=== PATIENT | female | born 1970 | race Caucasian/White ===

== ENCOUNTER 2017-04-20 20:23 | Emergency (ER) | payer BC ==
--- NOTE | 2017-04-20 21:06 | EDM.PDOC ---
ED HPI GENERAL MEDICAL PROBLEM - General Chief Complaint: Chest Pain Stated Complaint: BLOOD PRESSURE HIGH Time Seen by Provider: 04/20/17 20:34 Source of Information: Reports: Patient, Family (), RN Notes Reviewed History Limitations: Reports: No Limitations - History of Present Illness INITIAL COMMENTS - FREE TEXT/NARRATIVE: The patient states that she was seen at the [facility] earlier today for bladder issues, including pain. At the clinic, her blood pressure was noted to be 150/100. When she came home, she checked her blood pressure with her blood pressure cuff, finding a blood pressure 142/54, then 150/109, then 162/ 115. The patient does not have a history of hypertension. Here in the ED, without any treatment, her blood pressure is 113/74. She denies having a headache or blurry vision. Chest Pain Score (Numeric/FACES): 5 Pelvic Pain Score (Numeric/FACES): 8 - Related Data Allergies Allergy/AdvReac Type Severity Reaction Status Date / Time amoxicillin Allergy Hives Verified 04/20/17 20:33 Home Meds: Home Meds Gabapentin. 04/20/17 [History] Tramadol. 04/20/17 [History] Venlafaxine [Effexor XR] 150 mg PO DAILY 04/20/17 [History] Past Medical History Genitourinary History: Reports: Other (See Below) (Prolapsed bladder) Psychiatric History: Reports: Anxiety Endocrine/Metabolic History: Reports: Obesity/BMI 30+ - Infectious Disease History Infectious Disease History: Reports: Chicken Pox - Past Surgical History GI Surgical History: Reports: Other (See Below) (Exploratory laparotomy) Female Surgical History: Reports: Other (See Below) (Bladder suspension x 2 or 3) Social & Family History - Tobacco Use Smoking Status *Q: Never Smoker Second Hand Smoke Exposure: No - Alcohol Use Alcohol Use History: No - Recreational Drug Use Recreational Drug Use: No - Living Situation & Occupation Living situation: Reports: , with Spouse, with Family (2 kids) Occupation: Employed ([employer]) ED ROS GENERAL - Review of Systems Review Of Systems: See Below Constitutional: Reports: Chills HEENT: Reports: No Symptoms Respiratory: Reports: No Symptoms Cardiovascular: Reports: No Symptoms Endocrine: Reports: No Symptoms GI/Abdominal: Reports: No Symptoms : Reports: Pain Musculoskeletal: Reports: No Symptoms Skin: Reports: No Symptoms Neurological: Reports: No Symptoms Psychiatric: Reports: No Symptoms Hematologic/Lymphatic: Reports: No Symptoms Immunologic: Reports: No Symptoms ED EXAM, GENERAL - Physical Exam Exam: See Below Exam Limited By: No Limitations General Appearance: Alert, WD/WN, No Apparent Distress Eye Exam: Bilateral Eye: Normal Inspection Ears: Normal External Exam, Hearing Grossly Normal Nose: Normal Inspection, No Blood Throat/Mouth: Normal Inspection, Normal Lips, Normal Voice, No Airway Compromise Head: Atraumatic, Normocephalic Neck: Normal Inspection, Full Range of Motion Respiratory/Chest: No Respiratory Distress, Lungs Clear, Normal Breath Sounds, No Accessory Muscle Use Cardiovascular: Normal Peripheral Pulses, Regular Rate, Rhythm, No Gallop, No JVD, No Murmur, No Rub Peripheral Pulses: 4+: Radial (L), Radial (R) GI/Abdominal: Normal Bowel Sounds, Soft, Non-Tender, No Organomegaly, No Distention, No Abnormal Bruit, No Mass, Other (Obese) (Female) Exam: Deferred Rectal (Female) Exam: Deferred Back Exam: Normal Inspection, Full Range of Motion, NT Extremities: Normal Inspection, Normal Range of Motion, No Pedal Edema, Normal Capillary Refill Neurological: Alert, Oriented, Normal Cognition, No Motor/Sensory Deficits Psychiatric: Normal Affect Skin Exam: Warm, Dry, Intact, Normal Color, No Rash Lymphatic: No Adenopathy EKG INTERPRETATION EKG Date: 04/20/17 Time: 20:41 Rhythm: NSR Rate (Beats/Min): 61 [place]: Normal P-Wave: Present QRS: Normal ST-T: Normal QT: Normal Comparison: No Change (05/20/2016) Course - Vital Signs Last Recorded V/S: Last Vital Signs Temp 36.8 C 04/20/17 20:35 Pulse 63 04/20/17 20:35 Resp 16 04/20/17 20:35 BP 121/70 04/20/17 21:20 Pulse Ox 99 04/20/17 21:20 - Orders/Labs/Meds Orders: Active Orders 24 hr Category Date Time Status EKG Documentation Completion [RC] STAT Care 04/20/17 20:41 Active - Re-Assessments/Exams Free Text/Narrative Re-Assessment/Exam: 04/20/17 21:02 While the patient's blood pressure was elevated at the [facility] and at home , none of these were under restful conditions. Here in the ED, without any treatment, the patient's blood pressure is well within normal limits, at 113/ 74. She does not have hypertension, and no treatment is required. Departure - Departure Time of Disposition: 21:04 Disposition: Home, Self-Care 01 Condition: Good Clinical Impression: Elevated blood pressure reading without diagnosis of hypertension - Discharge Information Referrals: PCP,None [Primary Care Provider] - Forms: ED Department Discharge Additional Instructions: You were seen in the emergency room for elevated blood pressure earlier today. In the ER, without any treatment, your blood pressure was normal at 113/74. This means that you do not have hypertension, and no treatment of your blood pressure is needed. If any other problems, please do not hesitate to return to the ER. - My Orders Last 24 Hours: My Active Orders 04/20/17 20:41 EKG Documentation Completion [RC] STAT - Assessment/Plan Last 24 Hours: My Active Orders 04/20/17 20:41 EKG Documentation Completion [RC] STAT
[2017-04-20 21:35] VITALS: BP 121/70
== END 2017-04-20 21:20 | disposition home or self-care (01) ==
LOC: JD.ED 20:23
DX: R03.0 Elevated blood-pressure reading, without diagnosis of hypertension (principal); F41.9 Anxiety disorder, unspecified; E66.9 Obesity, unspecified; Z98.890 Other specified postprocedural states; Z79.899 Other long term (current) drug therapy; Z88.1 Allergy status to other antibiotic agents
CPT/HCPCS: 93005; 99282; 99283-25

== ENCOUNTER 2019-08-16 12:07 | Emergency (ER) | payer BC ==
[2019-08-16] MEDS ORDERED: HYDROmorphone 0.5 MG/0.5 ML Syringe IVPUSH ONE ×2 (12:25→13:39)
[2019-08-16] MEDS ORDERED: Ondansetron 4 MG/2 ML SDV IVPUSH ONE (12:25)
[2019-08-16 12:28] VITALS: BP 119/81; PULSE 76
--- NOTE | 2019-08-16 12:28 | EDM.PDOC ---
ED HPI GENERAL MEDICAL PROBLEM - General Chief Complaint: Flank Pain Stated Complaint: FLANK PAIN Time Seen by Provider: 08/16/19 12:23 Source of Information: Reports: Patient, Family (daughterr) History Limitations: Reports: No Limitations - History of Present Illness INITIAL COMMENTS - FREE TEXT/NARRATIVE: 49-year-old female presents to the ED with rather acute onset of left flank low back pain yesterday afternoon. As constant without a colicky component. She feels she probably has a recurrent urinary tract infection. She's had some chills but no defined fever. She does feel slightly warm to palpation the ED. Should nausea without vomiting. No history of kidney stones. She was treated for urinary tract infection about 3 weeks ago but stopped Cipro prematurely due to development of leg cramps which she associated with a side effect of Cipro. Seem to get better after the treatment that she did take and have subsequently returned. Certain movements and lifting seem to make the pain somewhat worse as well. Patient reports that she has had a previous bladder sling procedure with attempt to remove the mesh grafting due to complications. Left side of the graft was able to be removed but the right side was to return to the tissues to be removed completely. This places her at higher risk of development of UTI. She has urinary frequency but no dysuria or urgency. There is some degree of terminal dysuria. Onset: Sudden Onset Date: 08/15/19 Onset Time: 14:00 Duration: Hour(s):, Getting Worse Location: Reports: Back (Left flank and lower back.) Quality: Reports: Ache Severity: Moderate (Described as a deep aching discomfort. 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 1 tab PO DAILY 04/20/17 [History] Tramadol. 100 mg PO TID 04/20/17 [History] Doxycycline [Vibramycin] 100 mg PO BID #20 cap 08/16/19 [Rx] buPROPion [Wellbutrin] 75 mg PO DAILY 08/16/19 [History] oxyCODONE HCl/Acetaminophen [Percocet 5-325 mg Tablet] 1 - 2 each PO Q4H PRN # 12 tablet 08/16/19 [Rx] Past Medical History - Past Health History Medical/Surgical History: Denies Medical/Surgical History Genitourinary History: Reports: UTI, Recurrent, Other (See Below) (Prolapsed bladder has had a bladder sling procedure 1 with removal of graft due to complications. Only the left side of the graft was able to be removed the right was to return to the tissues.) Psychiatric History: Reports: Anxiety Endocrine/Metabolic History: Reports: Obesity/BMI 30+ - Infectious Disease History Infectious Disease History: Reports: Chicken Pox - Past Surgical History GI Surgical History: Reports: Other (See Below) (Exploratory laparotomy) Female Surgical History: Reports: Other (See Below) (Bladder suspension x 2 or 3) Social & Family History - Caffeine Use Caffeine Use: Reports: None - Living Situation & Occupation Living situation: Reports: , with Spouse, with Family (2 kids) Occupation: Employed ([employer]) ED ROS GENERAL - Review of Systems Review Of Systems: See Below Constitutional: Reports: Chills, Malaise, Weakness, Fatigue, Decreased Appetite HEENT: Reports: No Symptoms Respiratory: Reports: No Symptoms Cardiovascular: Reports: No Symptoms Endocrine: Reports: Fatigue GI/Abdominal: Reports: No Symptoms : Reports: Flank Pain (Left flank pain developing yesterday.). Denies: Frequency, Hematuria, Incontinence, Urgency Musculoskeletal: Reports: Back Pain Skin: Reports: No Symptoms Neurological: Reports: Other Psychiatric: Reports: No Symptoms Hematologic/Lymphatic: Reports: No Symptoms Immunologic: Reports: No Symptoms ED EXAM,LOWER BACK PAIN/INJURY - Physical Exam Exam: See Below Exam Limited By: No Limitations General Appearance: Alert, WD/WN, Mild Distress Eye Exam: Bilateral Eye: Normal Inspection Throat/Mouth: Normal Inspection, Normal Lips, Normal Oropharynx Head: Atraumatic, Normocephalic Neck: Normal Inspection, Supple, Non-Tender, Full Range of Motion. No: Lymphadenopathy (L), Lymphadenopathy (R) Respiratory/Chest: No Respiratory Distress, Lungs Clear, Normal Breath Sounds, No Accessory Muscle Use GI/Abdominal: Normal Bowel Sounds, Soft, Non-Tender, No Organomegaly, No Abnormal Bruit, No Mass, Pelvis Stable, Other (Mildly obese.). No: Guarding, Rigid, Rebound Back Exam: Full Range of Motion. No: CVA Tenderness (L), CVA Tenderness (R) Extremities: Normal Inspection, Normal Range of Motion, Non-Tender, No Pedal Edema Neurological: Alert, Normal Mood/Affect, CN II-XII Intact, No Motor/Sensory Deficits, Oriented x 3 Psychiatric: Normal Affect, Normal Mood Skin Exam: Warm, Dry, Intact, Normal Color, No Rash Course - Vital Signs Last Recorded V/S: Last Vital Signs Temp 37.1 C 08/16/19 12:26 Pulse 76 08/16/19 12:26 Resp 20 08/16/19 12:26 BP 119/81 08/16/19 12:26 Pulse Ox 97 08/16/19 12:26 - Orders/Labs/Meds Orders: Active Orders 24 hr Category Date Time Status CULTURE URINE [RM] Routine Lab 08/16/19 12:57 Received Sodium Chloride 0.9% [Normal Saline] 1,000 ml Med 08/16/19 12:30 Active IV ASDIRECTED cefTRIAXone [Rocephin] 2 gm Med 08/16/19 13:45 Active Sodium Chloride 0.9% [Normal Saline] 100 ml IV Q24H Medication Orders Sodium Chloride (Normal Saline) 1,000 mls @ 150 mls/hr IV ASDIRECTED KELLY Last Admin: 08/16/19 12:45 Dose: 150 mls/hr Ceftriaxone Sodium 2 gm/ (Sodium Chloride) 100 mls @ 200 mls/hr IV Q24H KELLY Last Admin: 08/16/19 13:50 Dose: 200 mls/hr Labs: Laboratory Tests 08/16/19 08/16/19 08/16/19 Range/Units 12:46 12:46 12:51 WBC 2.68 L (3.98-10.04) K/mm3 RBC 4.73 (3.98-5.22) M/mm3 Hgb 13.4 (11.2-15.7) gm/dl Hct 39.4 (34.1-44.9) % MCV 83.3 (79.4-94.8) fl MCH 28.3 (25.6-32.2) pg MCHC 34.0 (32.2-35.5) g/dl RDW Std Deviation 41.5 (36.4-46.3) fL Plt Count 200 (182-369) K/mm3 MPV 10.2 (9.4-12.3) fl Neut % (Auto) 38.0 (34.0-71.1) % Lymph % (Auto) 47.8 (19.3-51.7) % [place] % (Auto) 12.7 H (4.7-12.5) % Eos % (Auto) 0.7 (0.7-5.8) Baso % (Auto) 0.4 (0.1-1.2) % Neut # (Auto) 1.02 L (1.56-6.13) K/mm3 Lymph # (Auto) 1.28 (1.18-3.74) K/mm3 [place] # (Auto) 0.34 (0.24-0.36) K/mm3 Eos # (Auto) 0.02 L (0.04-0.36) K/mm3 Baso # (Auto) 0.01 (0.01-0.08) K/mm3 Manual Slide Review Abnormal smear Sodium 141 (136-145) mEq/L Potassium 4.0 (3.5-5.1) mEq/L Chloride 107 (98-107) mEq/L Carbon Dioxide 26 (21-32) mEq/L Anion Gap 12.0 (5-15) BUN 13 (7-18) mg/dL Creatinine 0.7 (0.55-1.02) mg/dL Est Cr Clr Drug Dosing 93.01 mL/min Estimated GFR (MDRD) > 60 (>60) mL/min BUN/Creatinine Ratio 18.6 H (14-18) Glucose 115 H (74-106) mg/dL Lactic Acid (0.4-2.0) mmol/L Calcium 8.4 L (8.5-10.1) mg/dL Total Bilirubin 0.3 (0.2-1.0) mg/dL AST 38 H (15-37) U/L ALT 68 H (14-59) U/L Alkaline Phosphatase 84 (46-116) U/L C-Reactive Protein 0.2 (<1.0) mg/dL Total Protein 7.2 (6.4-8.2) g/dl Albumin 3.3 L (3.4-5.0) g/dl Globulin 3.9 gm/dL Albumin/Globulin Ratio 0.9 L (1-2) Urine Color Yellow (Yellow) Urine Appearance Clear (Clear) Urine pH 5.5 (5.0-8.0) Ur Specific [place]ouch > or = 1.030 (1.005-1.030) Urine Protein Negative (Negative) Urine Glucose (UA) Negative (Negative) Urine Ketones Negative (Negative) Urine Occult Blood Negative (Negative) Urine Nitrite Positive H (Negative) Urine Bilirubin Negative (Negative) Urine Urobilinogen 0.2 (0.2-1.0) Ur Leukocyte Esterase Negative (Negative) Urine RBC 0-5 (0-5) /hpf Urine WBC 0-5 (0-5) /hpf Ur Squamous Epith Cells 0-5 (0-5) /hpf Urine Bacteria Moderate H (FEW) /hpf Urine Mucus Few (FEW) /hpf 08/16/19 Range/Units 13:10 WBC (3.98-10.04) K/mm3 RBC (3.98-5.22) M/mm3 Hgb (11.2-15.7) gm/dl Hct (34.1-44.9) % MCV (79.4-94.8) fl MCH (25.6-32.2) pg MCHC (32.2-35.5) g/dl RDW Std Deviation (36.4-46.3) fL Plt Count (182-369) K/mm3 MPV (9.4-12.3) fl Neut % (Auto) (34.0-71.1) % Lymph % (Auto) (19.3-51.7) % [place] % (Auto) (4.7-12.5) % Eos % (Auto) (0.7-5.8) Baso % (Auto) (0.1-1.2) % Neut # (Auto) (1.56-6.13) K/mm3 Lymph # (Auto) (1.18-3.74) K/mm3 [place] # (Auto) (0.24-0.36) K/mm3 Eos # (Auto) (0.04-0.36) K/mm3 Baso # (Auto) (0.01-0.08) K/mm3 Manual Slide Review Sodium (136-145) mEq/L Potassium (3.5-5.1) mEq/L Chloride (98-107) mEq/L Carbon Dioxide (21-32) mEq/L Anion Gap (5-15) BUN (7-18) mg/dL Creatinine (0.55-1.02) mg/dL Est Cr Clr Drug Dosing mL/min Estimated GFR (MDRD) (>60) mL/min BUN/Creatinine Ratio (14-18) Glucose (74-106) mg/dL Lactic Acid 0.9 (0.4-2.0) mmol/L Calcium (8.5-10.1) mg/dL Total Bilirubin (0.2-1.0) mg/dL AST (15-37) U/L ALT (14-59) U/L Alkaline Phosphatase (46-116) U/L C-Reactive Protein (<1.0) mg/dL Total Protein (6.4-8.2) g/dl Albumin (3.4-5.0) g/dl Globulin gm/dL Albumin/Globulin Ratio (1-2) Urine Color (Yellow) Urine Appearance (Clear) Urine pH (5.0-8.0) Ur Specific [place] (1.005-1.030) Urine Protein (Negative) Urine Glucose (UA) (Negative) Urine Ketones (Negative) Urine Occult Blood (Negative) Urine Nitrite (Negative) Urine Bilirubin (Negative) Urine Urobilinogen (0.2-1.0) Ur Leukocyte Esterase (Negative) Urine RBC (0-5) /hpf Urine WBC (0-5) /hpf Ur Squamous Epith Cells (0-5) /hpf Urine Bacteria (FEW) /hpf Urine Mucus (FEW) /hpf Meds: Medications Generic Name Dose Route Start Last Admin Trade Name Freq PRN Reason Stop Dose Admin Sodium Chloride 1,000 mls @ 150 mls/hr 08/16/19 12:30 08/16/19 12:45 Normal Saline IV 150 mls/hr ASDIRECTED KELLY Administration Ceftriaxone Sodium 2 gm/ 100 mls @ 200 mls/hr 08/16/19 13:45 08/16/19 13:50 Sodium Chloride IV 200 mls/hr Q24H KELLY Administration Discontinued Medications Generic Name Dose Route Start Last Admin Trade Name Baylee PRN Reason Stop Dose Admin Hydromorphone HCl 0.5 mg 08/16/19 12:25 08/16/19 12:45 Dilaudid IVPUSH 08/16/19 12:26 0.5 mg ONETIME ONE Administration Hydromorphone HCl 0.5 mg 08/16/19 13:39 08/16/19 13:50 Dilaudid IVPUSH 08/16/19 13:40 0.5 mg ONETIME ONE Administration Ondansetron HCl 4 mg 08/16/19 12:25 08/16/19 12:45 Zofran IVPUSH 08/16/19 12:26 4 mg ONETIME ONE Administration - Radiology Interpretation Free Text/Narrative:: 49-year-old female presents to the ED with rather acute onset of left flank low back pain. He states started yesterday afternoon and has persisted. It's described as being constant and worsened by certain movements. She had a history of urinary tract infection about 3 weeks ago and stopped her Cipro treatment prematurely due to development of leg cramps. He blamed the Cipro as a cause. She states symptoms of the urinary tract infection did improve her period of time but seemed to come back lately with increased frequency but no true dysuria urgency. Recurrent urinary tract infections and doesn't always feel dysuria. She's had previous bladder sling procedure because of bladder prolapse or cystocele. She's had part of the graft removed subsequent due to problems developing from the sling. Apparently part of the left side of the graft was removed with the right could not be removed due to it being in here to the tissues. She is presently very mildly warm to palpation. She's complaining some chills. She does not appear to be septic in any way. Pain is described to be 7 out of 10. Plan normal saline 150 mils per hour. Urinalysis 1 one becomes available. CBC auto differential and CRP with chemistry panel. Lactic acid will also be ordered. Working diagnosis is early pyelonephritis. - Re-Assessments/Exams Free Text/Narrative Re-Assessment/Exam: 08/16/19 13:21 Labs are back and reveal a leukopenia with a total white count of 2.68. All biometry differential is 38% neutrophils and 48% lymphocytes. Hemoglobin is 13.4 and hematocrit of 39.4. Platelet count 200,000. Manual slide is pending. The dip portion of the urinalysis is positive for nitrates. Negative for leukocyte esterase. Awaiting the micro-. 08/16/19 13:31 Micro-reveals no red cells or pus cells but is revealing moderate bacteria. Urine culture will therefore be ordered. Chemistry is pending. 08/16/19 13:38 because of the positive nitrates in the urine but suspect she has a ureteritis/left pyelonephritis. She reports that she's never had a noted leukopenia in the past. On further questioning about her reaction to penicillin she states that she broke out in some mild hives after is being given intravenously. No anaphylactic reaction. I'm going to give her Rocephin 2 g IV. Pain is still listed as 4-5 out of 10. Will repeat Dilaudid 0.5 mg IV for pain relief. 08/16/19 14:52 Chemistry is now back showing a sodium of 141 potassium of 4.0. Chloride is 107 with a bicarbonate 26. And a gap is 12.0. BUN is 13 with a creatinine of 0.7. Estimated GFR is greater than 60. Glucose is 1:15. Lactic acid was 0.9. Calcium is 8.4 slightly low. Liver function reveals slightly elevated AST at 38 MALT of 68. Bilirubin is normal at 0.3. Alkaline phosphatase is normal at 84. C-reactive protein is less than 0.2. Patient has completed 2 g of Rocephin IV. She will therefore be discharged to home. She seemed to get an adverse reaction to Cipro last time and she took it for 4-5 days. Placed on Doxil cycle 100 mg twice daily for the next 10 days. Departure - Departure Time of Disposition: 14:54 Disposition: Home, Self-Care 01 Condition: Fair Clinical Impression: Upper urinary tract infection - Discharge Information *PRESCRIPTION DRUG MONITORING PROGRAM REVIEWED*: Not Applicable *COPY OF PRESCRIPTION DRUG MONITORING REPORT IN PATIENT ROCCO: Not Applicable Prescriptions: Doxycycline [Vibramycin] 100 mg PO BID #20 cap oxyCODONE HCl/Acetaminophen [Percocet 5-325 mg Tablet] 1 - 2 each PO Q4H PRN # 12 tablet PRN Reason: pain relief. Instructions: Flank Pain, Adult, [id number], Pain Medicine Instructions, Easy -to-Read Referrals: PCP,None [Primary Care Provider] - Forms: ED Department Discharge Additional Instructions: Evaluation the emergency room today in regards to left flank pain left lower back pain of 2 days' duration. Urinalysis is positive for nitrates which is highly suggestive of bacteria in the urine. There were no red cells or obvious pus cells in the urine. Many bacteria were appreciated. It is suspect that you have an upper urinary tract infection which can sometimes show up this way without any significant pus cells in the urine. The other lab work was all within normal limits other than a low white count at 2.68 suggesting a viral infection. Treated with first dose of anabolic in the ED Rocephin 2 g. Will need to start oral antibiotic toxic and 100 mg twice daily for the next 10 days with the first tablet to be taken tonight with something to eat. May use Percocet tabs 5/3/25 milligrams one or 2 every 6 hours if necessary for relief of left flank pain until antibiotics become fully effective ,usually much improved within 36 hours. - My Orders Last 24 Hours: My Active Orders 08/16/19 12:30 Sodium Chloride 0.9% [Normal Saline] 1,000 ml IV ASDIRECTED 08/16/19 12:57 CULTURE URINE [RM] Routine 08/16/19 13:45 cefTRIAXone [Rocephin] 2 gm Sodium Chloride 0.9% [Normal Saline] 100 ml IV Q24H - Assessment/Plan Last 24 Hours: My Active Orders 08/16/19 12:30 Sodium Chloride 0.9% [Normal Saline] 1,000 ml IV ASDIRECTED 08/16/19 12:57 CULTURE URINE [RM] Routine 08/16/19 13:45 cefTRIAXone [Rocephin] 2 gm Sodium Chloride 0.9% [Normal Saline] 100 ml IV Q24H
[2019-08-16] MEDS ORDERED: Sodium Chloride 0.9% 1,000 ML IV SCH (12:30)
[2019-08-16] MEDS ORDERED: cefTRIAXone 2 GM in Sodium Chloride 0.9% 100 ML IV SCH (13:45)
== END 2019-08-16 15:19 | disposition home or self-care (01) ==
LOC: JD.ED 12:07
DX: N39.0 Urinary tract infection, site not specified (principal); E66.9 Obesity, unspecified; Z68.32 Body mass index [BMI] 32.0-32.9, adult; Z88.1 Allergy status to other antibiotic agents
CPT/HCPCS: 36415; 80053; 81001; 83605; 85025; 86140; 87086; 87088; 87186; 96361; 96365; 96375; 96376; 99284; J0696; J1170; J2405; J7030; J7040; 99283

== ENCOUNTER 2020-10-06 13:03 | Emergency (ER) | payer BC ==
[2020-10-06 13:31] VITALS: BP 129/79; PULSE 78
[2020-10-06] MEDS ORDERED: FLU VACC QS2020-21(6MOS UP)/PF 60 MCG/0.5 ML SYRINGE IM ONE (13:45)
--- NOTE | 2020-10-06 15:17 | EDM.PDOC ---
ED HPI GENERAL MEDICAL PROBLEM - General Chief Complaint: Flank Pain Stated Complaint: blood in urine/BACK PAIN Time Seen by Provider: 10/06/20 13:27 Source of Information: Reports: Patient, RN Notes Reviewed History Limitations: Reports: No Limitations - History of Present Illness INITIAL COMMENTS - FREE TEXT/NARRATIVE: Patient is a 50-year-old female presenting to the emergency department with complaints of bilateral low back pain, dysuria, frequency, urgency, and gross hematuria. She states when she woke this morning, she went to the bathroom and when she voided it was maty red blood with some clots. This has since resolved. She also experienced burning with urination, especially at the end of the stream. She also complains of having difficulty holding her urine as well as frequency. Patient does have a history of recurrent urinary tract infections. She denies any fever, chills, nausea, or vomiting. Bilateral Flank Pain Score (Numeric/FACES): 7 - Related Data Allergies Allergy/AdvReac Type Severity Reaction Status Date / Time amoxicillin Allergy Hives Verified 10/06/20 13:32 ciprofloxacin Allergy Muscle Verified 10/06/20 15:32 Aches Home Meds: Home Meds Gabapentin. 1 tab PO DAILY 04/20/17 [History] Tramadol. 100 mg PO TID 04/20/17 [History] buPROPion [Wellbutrin] 75 mg PO DAILY 08/16/19 [History] Sulfamethoxazole/Trimethoprim [Bactrim Ds Tablet] 1 each PO BID #19 tablet 10/06/20 [Rx] Past Medical History - Past Health History Medical/Surgical History: Denies Medical/Surgical History Genitourinary History: Reports: UTI, Recurrent, Other (See Below) Other Genitourinary History: PARTIAL MESH FOR URINARY INCONTINENCE Psychiatric History: Reports: Anxiety Endocrine/Metabolic History: Reports: Obesity/BMI 30+ - Infectious Disease History Infectious Disease History: Reports: Chicken Pox - Past Surgical History GI Surgical History: Reports: Other (See Below) Other GI Surgeries/Procedures: ABCESS IN ABDOMEN REMOVED Female Surgical History: Reports: Other (See Below) Other Female Surgeries/Procedures: BLADDER SURGERY Musculoskeletal Surgical History: Reports: Other (See Below) Other Musculoskeletal Surgeries/Procedures:: pt states that 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 Denies: Fever, Weakness HEENT: Reports: No Symptoms Respiratory: Reports: No Symptoms Cardiovascular: Reports: No Symptoms Endocrine: Reports: No Symptoms GI/Abdominal: Reports: No Symptoms. Denies: Abdominal Pain, Diarrhea, Nausea, Vomiting : Reports: Dysuria, Flank Pain (bilateral), Frequency, Hematuria, Urgency Musculoskeletal: Reports: No Symptoms Skin: Reports: No Symptoms Neurological: Reports: No Symptoms Psychiatric: Reports: No Symptoms Hematologic/Lymphatic: Reports: No Symptoms Immunologic: Reports: No Symptoms ED EXAM, RENAL/ - Physical Exam Exam: See Below Exam Limited By: No Limitations General Appearance: Alert, WD/WN, No Apparent Distress Respiratory/Chest: No Respiratory Distress, Lungs Clear, Normal Breath Sounds, No Accessory Muscle Use, Chest Non-Tender Cardiovascular: Normal Peripheral Pulses, Regular Rate, Rhythm, No Edema, No Gallop, No JVD, No Murmur, No Rub GI/Abdominal: Normal Bowel Sounds, Soft, Non-Tender, No Organomegaly, No Distention, No Abnormal Bruit, No Mass Back Exam: Normal Inspection, Full Range of Motion, CVA Tenderness (L), CVA Tenderness (R) Neurological: Alert, Oriented, CN II-XII Intact, Normal Cognition, Normal Gait, Normal Reflexes, No Motor/Sensory Deficits Psychiatric: Normal Affect, Normal Mood Skin Exam: Warm, Dry, Intact, Normal Color, No Rash Course - Vital Signs Last Recorded V/S: Last Vital Signs Temp 97.3 F 10/06/20 13:27 Pulse 78 10/06/20 13:27 Resp 16 10/06/20 13:27 BP 129/79 10/06/20 13:27 Pulse Ox 99 10/06/20 13:27 - Orders/Labs/Meds Labs: Laboratory Tests 10/06/20 10/06/20 10/06/20 Range/Units 14:10 14:20 14:20 WBC 4.75 (3.98-10.04) K/mm3 RBC 4.92 (3.98-5.22) M/mm3 Hgb 14.2 (11.2-15.7) gm/dl Hct 41.8 (34.1-44.9) % MCV 85.0 (79.4-94.8) fl MCH 28.9 (25.6-32.2) pg MCHC 34.0 (32.2-35.5) g/dl RDW Std Deviation 40.8 (36.4-46.3) fL Plt Count 192 (182-369) K/mm3 MPV 10.7 (9.4-12.3) fl Neut % (Auto) 58.3 (34.0-71.1) % Lymph % (Auto) 33.1 (19.3-51.7) % [place] % (Auto) 8.0 (4.7-12.5) % Eos % (Auto) 0.6 L (0.7-5.8) Baso % (Auto) 0.0 L (0.1-1.2) % Neut # (Auto) 2.77 (1.56-6.13) K/mm3 Lymph # (Auto) 1.57 (1.18-3.74) K/mm3 [place] # (Auto) 0.38 H (0.24-0.36) K/mm3 Eos # (Auto) 0.03 L (0.04-0.36) K/mm3 Baso # (Auto) 0.00 L (0.01-0.08) K/mm3 Sodium 140 (136-145) mEq/L Potassium 3.9 (3.5-5.1) mEq/L Chloride 105 (98-107) mEq/L Carbon Dioxide 28 (21-32) mEq/L Anion Gap 10.9 (5-15) BUN 14 (7-18) mg/dL Creatinine 0.8 (0.55-1.02) mg/dL Est Cr Clr Drug Dosing 80.51 mL/min Estimated GFR (MDRD) > 60 (>60) mL/min BUN/Creatinine Ratio 17.5 (14-18) Glucose 123 H (74-106) mg/dL Calcium 8.8 (8.5-10.1) mg/dL Total Bilirubin 0.3 (0.2-1.0) mg/dL AST 45 H (15-37) U/L ALT 87 H (14-59) U/L Alkaline Phosphatase 68 (46-116) U/L C-Reactive Protein 0.7 (<1.0) mg/dL Total Protein 7.8 (6.4-8.2) g/dl Albumin 3.8 (3.4-5.0) g/dl Globulin 4.0 gm/dL Albumin/Globulin Ratio 1.0 (1-2) Urine Color Yellow (Yellow) Urine Appearance Slt cloudy H (Clear) Urine pH 5.5 (5.0-8.0) Ur Specific [place] > or = 1.030 (1.005-1.030) Urine Protein 1+ H (Negative) Urine Glucose (UA) Negative (Negative) Urine Ketones Negative (Negative) Urine Occult Blood 3+ H (Negative) Urine Nitrite Negative (Negative) Urine Bilirubin Negative (Negative) Urine Urobilinogen 0.2 (0.2-1.0) Ur Leukocyte Esterase 1+ H (Negative) Urine RBC 40-50 H (0-5) /hpf Urine WBC 20-30 H (0-5) /hpf Ur Squamous Epith Cells 0-5 (0-5) /hpf Urine Bacteria Few (FEW) /hpf Urine Mucus Few (FEW) /hpf Meds: Medications Discontinued Medications Generic Name Dose Route Start Last Admin Trade Name Freq PRN Reason Stop Dose Admin Influenza Virus Vaccine 60 mcg 10/06/20 13:45 10/06/20 15:47 Fluzone Quad [id number] Syringe IM 10/06/20 13:46 60 mcg .ONCE ONE Administration Trimethoprim/Sulfamethoxazole 1 tab 10/06/20 15:54 10/06/20 16:03 Septra Ds PO 10/06/20 15:55 1 tab ONETIME ONE Administration - Re-Assessments/Exams Free Text/Narrative Re-Assessment/Exam: Patient is a 50-year-old female presenting to the emergency department with complaints of gross hematuria, dysuria, frequency, urgency, and bilateral low back pain. She describes a history of frequent urinary tract infections. She is had no fever, chills, nausea, or vomiting. Ordered CBC, CMP, CRP, urinalysis. 10/06/20 15:56 Hematology is grossly unremarkable. Urinalysis was significant for 1+ protein, 3+ occult blood, 1+ leukocyte esterase, 40-50 RBCs, and 20-30 WBCs. Patient verbalized that she does not tolerate Cipro well as it causes significant muscle muscle aches. She has had Bactrim in the past and has tolerated it well. We will do a course of Bactrim, twice daily for 10 days. Urine has been sent for culture. Discussed return precautions. Discharge instructions as documented. Departure - Departure Time of Disposition: 15:57 Disposition: Home, Self-Care 01 Condition: Good Clinical Impression: UTI, Urinary tract infectious disease - Discharge Information *PRESCRIPTION DRUG MONITORING PROGRAM REVIEWED*: No *COPY OF PRESCRIPTION DRUG MONITORING REPORT IN PATIENT ROCCO: No Prescriptions: Sulfamethoxazole/Trimethoprim [Bactrim Ds Tablet] 1 each PO BID #19 tablet Instructions: Urinary Tract Infection, Adult Referrals: Sandy Carrion MD [Primary Care Provider] - Forms: ED Department Discharge Additional Instructions: You were seen in the emergency department today for low back pain, blood in your urine, pain with urination, as well as frequency and urgency of urination. Work-up included blood work and a urinalysis. Results your blood work were found to be normal. Urinalysis results were consistent with a urinary tract infection with cystitis (bladder inflammation). You have been started on Bactrim which is an antibiotic for the treatment of urinary tract infection. Take this medication as prescribed. You may use [id number] Azo as needed for the burning with urination. Your urine has been sent for culture. If this should grow a bacteria that is not susceptible to the antibiotic that you been started on, you will be notified and the antibiotic will be changed. If you should experience worsening symptoms such as fever, chills, nausea, vomiting, recommend return to the emergency department for reevaluation. Sepsis Event Note (ED) - Evaluation Sepsis Screening Result: No Definite Risk
[2020-10-06] MEDS ORDERED: Sulfamethoxazole/Trimethoprim 800-160 MG Tab PO ONE (15:54)
== END 2020-10-06 16:10 | disposition home or self-care (01) ==
LOC: JD.ED 13:03
DX: N39.0 Urinary tract infection, site not specified (principal); F41.9 Anxiety disorder, unspecified; E66.9 Obesity, unspecified; Z68.37 Body mass index [BMI] 37.0-37.9, adult; Z88.1 Allergy status to other antibiotic agents; Z23 Encounter for immunization
CPT/HCPCS: 36415; 80053; 81001; 85025; 86140; 87086; 87088; 87186; 90471; 90686; 99283; A9270; G0008

== ENCOUNTER 2024-11-28 10:43 | Emergency (ER) | payer BC, OTHER ==
[2024-11-28 12:33] VITALS: BP 122/83; PULSE 61
[2024-11-28 12:42] LABS: APPEARANCE,URINE CLEAR (Clear); BILIRUBIN,URINE NEGATIVE (Negative); COLOR,URINE YELLOW (Yellow); GLUCOSE,URINE NEGATIVE (Negative); KETONES,URINE NEGATIVE (Negative); LEUKOCYTE ESTERASE,URINE 1+ (Negative); NITRITE,URINE NEGATIVE (Negative); OCCULT BLOOD,URINE NEGATIVE (Negative); PH,URINE 5.5 (5.0-8.0); PROTEIN,URINE NEGATIVE (Negative); UROBILINOGEN,URINE 0.2 (0.2-1.0)
[2024-11-28 12:58] LABS: BASOPHILS PERCENT AUTO 0.7 % (0.0-1.0); EOSINOPHILS PERCENT AUTO 0.4 % (0.0-6.0); HEMATOCRIT 39.3 % (37.0-47.0); HEMOGLOBIN 13.4 gm/dl (12.0-16.0); IMMATURE GRAN ABSOLUTE AUTO 0.01 K/mm3 (0.00-0.05); IMMATURE GRAN PERCENT AUTO 0.4 % (0.0-0.4); LYMPHOCYTES ABSOLUTE AUTO 1.2 K/mm3 (1.0-4.8); LYMPHOCYTES PERCENT AUTO 42.1 % (24.0-44.0); MEAN CORPUSCULAR HGB CONC 34.1 g/dl (32.0-36.0); MEAN CORPUSCULAR VOLUME 85.1 fl (83.0-99.0); MEAN PLATELET VOLUME 10.2 fl (9.4-12.3); MONOCYTES ABSOLUTE AUTO 0.3 K/mm3 (0.0-0.8); MONOCYTES PERCENT AUTO 11.1 % (0.0-8.0); NEUTROPHILS ABSOLUTE AUTO 1.3 K/mm3 (1.8-7.7); NEUTROPHILS PERCENT AUTO 45.3 % (41.0-71.0); PLATELET COUNT,PLT 143 K/mm3 (150-400); RED BLOOD CELL COUNT 4.62 M/mm3 (4.10-5.30)
[2024-11-28 13:09] LABS: BACTERIA,URINE MODERATE /hpf (FEW); MUCUS,URINE MODERATE /hpf (FEW); RBC,URINE 0-5 /hpf (0-5); SQUAMOUS EPITHELIAL CELLS,UR 0-5 /hpf (0-5)
[2024-11-28 13:10] LABS: A/G RATIO 1.1 (1-2); ALANINE AMINOTRANSFERASE,ALT 51 U/L (14-59); ALBUMIN 3.9 g/dl (3.4-5.0); ALKALINE PHOSPHATASE 74 U/L (46-116); ANION GAP 12.1 (5-15); ASPARTATE AMNIOTRANSFERASE,AST 39 U/L (15-37); BILIRUBIN TOTAL 0.4 mg/dL (0.2-1.0); BLOOD UREA NITROGEN,BUN 14 mg/dL (7-18); BUN/CREATININE RATIO 17.5 (14-18); C-REACTIVE PROTEIN 0.06 mg/dL (<0.30); CALCIUM 9.2 mg/dL (8.5-10.1); CARBON DIOXIDE,CO2 28 mEq/L (21-32); CHLORIDE,CL 107 mEq/L (98-107); CREATININE 0.8 mg/dL (0.55-1.02); EST CRCL DRUG DOSING (CG) 77.01 mL/min; ESTIMATED GFR 89 mL/min (>60); GLUCOSE RANDOM 83 mg/dL (70-99); LIPASE 44 U/L (16-77); POTASSIUM,K 4.1 mEq/L (3.5-5.1); PROTEIN TOTAL,TP 7.6 g/dl (6.4-8.2); SODIUM,NA 143 mEq/L (136-145)
[2024-11-28 13:15] LABS: TROPONIN I HIGH SENSITIVITY < 4 pg/mL (<=51)
[2024-11-28] MEDS: Sodium Chloride 0.9% 10 ML Syringe FLUSH ONE (14:49)
[2024-11-28] MEDS: Sodium Chloride 0.9% 1,000 ML IV ONE (14:49)
[2024-11-28] MEDS: cefTRIAXone 1 GM Vial IVPUSH ONE (14:49)
[2024-11-28] MEDS: Ondansetron 4 MG/2 ML SDV IVPUSH ONE (14:56)
[2024-11-28] MEDS: Iopamidol 612 MG/ML 100 ML Bottle IVPUSH ONE (15:04)
== END 2024-11-28 16:20 | disposition home or self-care (01) ==
LOC: JD.ED 10:43
DX: N30.00 Acute cystitis without hematuria (principal); K59.00 Constipation, unspecified; E66.9 Obesity, unspecified; Z90.710 Acquired absence of both cervix and uterus; Z79.899 Other long term (current) drug therapy; Z79.891 Long term (current) use of opiate analgesic; Z88.0 Allergy status to penicillin; Z88.1 Allergy status to other antibiotic agents; Z68.36 Body mass index [BMI] 36.0-36.9, adult
CPT/HCPCS: 36415; 74177; 80053; 81001; 83690; 84484; 85025; 86140; 93005; 96374; 96375; 99285; J0696; J2405; J7030; Q9967